=== PATIENT | female | born 1985 | race Caucasian/White ===

== ENCOUNTER 2021-06-18 16:36 | Emergency (ER) | payer MEDICAID ==
[~2021-06-18] VITALS: Ht 162.6 cm; Wt 60.0 kg
[2021-06-18] MEDS ORDERED: PREDNISONE 20MG TABLET PO ONE (17:15)
[2021-06-18] MEDS ORDERED: DIPHENHYDRAMINE 50MG CAPSULE PO ONE (17:15)
[2021-06-18 17:37] VITALS: BP 110/62
[2021-06-18] MEDS ORDERED: EPINEPHRINE 1:1000 1 MG/ML AMP IM ONE (19:15)
[2021-06-18] MEDS ORDERED: EPINEPHRINE 1:1000 1 MG/ML AMP IM NR (19:30)
[2021-06-18] MEDS ORDERED: PRED5TAB MT (20:29)
[2021-06-18] MEDS ORDERED: EPIN0.3P3 IM (20:29)
== END 2021-06-18 20:35 | disposition home or self-care (01) ==
LOC: ER 16:36
DX: L27.2 Dermatitis due to ingested food (principal)
CPT/HCPCS: 96372; 99283; J3490; J7512; Q0163